=== PATIENT | male | born 1975 | race Caucasian/White ===

== ENCOUNTER → 2018-06-19 | Outpatient (CLI) | payer BC ==
--- NOTE | 2018-06-21 20:49 | MR ---
EXAMINATION TYPE: MR lumbar spine wo con DATE OF EXAM: 06/19/2018 COMPARISON: 09/08/2015 HISTORY: 42-year-old male Low back pain x8 years TECHNIQUE: Multiplanar, multisequence images of the lumbar spine were acquired. FINDINGS: Vertebral body heights are preserved and alignment is maintained. Very minimal early intervertebral disc desiccation upper to mid lumbar spine with minimal disc bulgin g. Mild facet arthropathy lower lumbar spine. No suspicious bone marrow replacement. Some fatty Modic type II endplate change posteriorly at L1-L2 and L2-L3 is new. Conus medullaris is normal. No prevertebral or paravertebral soft tissue abnormality. No focal disc herniation. From T12 through L2 levels, no spinal canal or neuroforaminal stenosis. At L2-L3, minimal bulging disc without significant canal or foraminal stenosis. There is minimal infe rior foraminal narrowing on the left due to disc bulge. At L3-L4, minimal bulging disc without significant canal or foraminal stenosis. L4-L5, minimal inferior foraminal narrowing on the left secondary to bulging disc and mild facet arth ropathy. At L5-S1, no spinal canal or neuroforaminal stenosis. Mild facet arthropathy is present. IMPRESSION: 1. Mild early degenerative changes of the intervertebral disks characterized by mild disc desiccation and minimal disc bulging at various levels especially in the upper to mid lumbar spine. As compared to 2015, there is development of some fatty Modic type II endplate change posteriorly in the upper cynthia mbar spine. 2. No focal disc herniation or significant spinal canal or neuroforaminal stenosis.
== END | disposition home or self-care (01) ==
LOC: RADMRIMAIN 20:36
PROVIDERS: ATTEND Family Medicine
DX: M47.816 Spondylosis without myelopathy or radiculopathy, lumbar region (principal)
CPT/HCPCS: 72148

== ENCOUNTER → 2023-07-28 | Outpatient (CLI) | payer BC ==
--- NOTE | 2023-07-28 15:53 | XR ---
EXAMINATION TYPE: XR cervical spine w flex/ext DATE OF EXAM: 07/28/2023 COMPARISON: None HISTORY: Low back pain increased loss of mobility TECHNIQUE: Cervical spine is examined in the sagittal neutral flexion and extension views. FINDINGS: Vertebral body alignment preserved in sagittal plane. Prevertebral space is normal. Posteri or spinal lamellar line is intact. No spondylolisthesis. Neural foramen are patent. Vertebral body he ights are preserved. The odontoid is limited with overlying maxilla. IMPRESSION: 1. No suspicious acute changes cervical spine. 2. No significant change between neutral flexion and extension views.
--- NOTE | 2023-07-28 15:54 | XR ---
EXAMINATION TYPE: XR sacroiliac joint comp BILAT DATE OF EXAM: 07/28/2023 COMPARISON: None HISTORY: Immune disease loss of mobility TECHNIQUE: 3 view sacroiliac joints FINDINGS: Sacroiliac joints are indistinct. The borders are indistinct. There is some increase sclero sis along the sacroiliac margins. Findings compatible with sacroiliitis. Subcutaneous symphysis appears normal. Femoral heads articulate with the acetabulum. IMPRESSION: 1. Findings compatible with bilateral sacroiliitis.
--- NOTE | 2023-07-28 15:56 | XR ---
EXAMINATION TYPE: XR lumbar spine 2 or 3V DATE OF EXAM: 07/28/2023 COMPARISON: None HISTORY: Low back pain autoimmune disease TECHNIQUE: 3 view lumbar spine FINDINGS: There are 5 lumbar-type vertebral bodies. Pedicles are intact. Disc heights are preserved. Vertebral body heights are preserved. No spondylolisthesis. The degenerative changes at sacroiliac joints is evident within the [id number]. We see sacroiliac joint dictation same date. IMPRESSION: 1. Unremarkable 5 view lumbar spine. 2. Sacroiliitis
== END | disposition home or self-care (01) ==
LOC: RADXRMAIN 14:56
PROVIDERS: ATTEND Internal Medicine Rheumatology
DX: M46.1 Sacroiliitis, not elsewhere classified (principal); D89.9 Disorder involving the immune mechanism, unspecified; M54.50 Low back pain, unspecified
CPT/HCPCS: 72052; 72100; 72202

== ENCOUNTER → 2023-07-28 | Outpatient (CLI) | payer BC ==
[2023-07-28 20:11] LABS: Hepatitis B Surface Antigen Nonreactive; Hepatitis C IgG Antibody Nonreactive
== END | disposition home or self-care (01) ==
LOC: LABWHC1 14:38
PROVIDERS: ATTEND Internal Medicine Rheumatology
DX: M25.50 Pain in unspecified joint (principal)
CPT/HCPCS: 36415; 86480; 86803; 87340